=== PATIENT | female | born 1960 | race African-American/Black ===

== ENCOUNTER 2021-04-03 13:04 | Emergency (ER) | payer OTHER, SELFPAY ==
--- NOTE | ~2021-04-03 | XR_ITS ---
XR chest 2V DATE: 04/03/2021 13:47 INDICATION: Chest pain, sudden. Weakness. Recent exposure to family member with Covid TECHNIQUE: PA and lateral views COMPARISON: 01/09/2016 portable AP chest FINDINGS: Heart size is within normal range. No hilar or mediastinal enlargement. No pulmonary infilt rate or consolidation, pleural effusion or pulmonary vascular congestion or pneumothorax. IMPRESSION: No active cardiopulmonary disease Reviewed, dictated and finalized at location B.
--- NOTE | 2021-04-03 13:06 | ECG_ITS ---
Measurements Intervals [place] Rate: 77 P: 36 ND: 191 QRS: 11 QRSD: 76 T: 41 QT: 369 QTc: 418 Interpretive Statements SINUS RHYTHM LOW QRS VOLTAGE IN PRECORDIAL LEADS MINIMAL Q WAVES- INFERIOR LEADS BORDERLINE T WAVE ABNORMALITY- INFERIOR LEADS BORDERLINE ECG Electronically Signed On 04-03-2021 13:27:41 CDT by Drew Mayer D.O.
[2021-04-03 13:19] VITALS: BP 130/77; PULSE 83; RESP 18; TEMP 36.8; O2SAT 98
[2021-04-03 13:22] VITALS: PULSE 83
[2021-04-03 13:33] LABS: Basophils Absolute Auto 0.1 K/mm3 (0.0-0.1); Basophils Percent Auto 0.6 % (0.2-1.2); Eosinophils Absolute Auto 0.1 K/mm3 (0-0.3); Eosinophils Percent Auto 1.4 % (0-4.4); Hematocrit 42.5 % (37.0-47.0); Hemoglobin 13.6 g/dL (12.0-15.0); Immature Granulocyte Absolute 0.02 K/mm3 (0.00-0.031); Immature Granulocyte Percent A 0.3 % (0-0.5); Lymphocytes Absolute Auto 3.46 K/mm3 (0.9-3.2); Lymphocytes Percent Auto 43.3 % (18.3-44.2); Mean Corpuscular Hemoglobin 30.5 pg (26-34); Mean Corpuscular Volume 95.3 fl (80-100); Mean Platelet Volume 9.7 fl (7.4-10.4); Monocytes Absolute Auto 0.8 K/mm3 (0.1-0.6); Monocytes Percent Auto 9.5 % (2.6-8.5); Neutrophils Absolute Auto 3.6 K/mm3 (1.3-6.7); Neutrophils Percent Auto 44.9 % (45.5-73.1); Platelet Count Result 304 k/mm3 (150-375); Red Blood Count 4.46 M/mm3 (4.2-5.4); Red Cell Distribution Width 12.6 % (11.5-14.5)
[2021-04-03 13:51] LABS: INR 0.8; Prothrombin Time 11.5 Seconds (11.1-14.7)
[2021-04-03 13:52] LABS: Partial Thromboplastin Time 29.2 SECONDS (22.3-36.8)
--- NOTE | 2021-04-03 13:52 | ED.CHESTPAIN ---
HPI - Chest Pain General Chief Complaint: Chest Pain Stated Complaint: chest pain Time Seen by Provider: 04/03/21 13:16 Source: patient, RN notes reviewed and old records reviewed Mode of arrival: ambulatory Limitations: no limitations History of Present Illness HPI narrative: This is a 60 year old female with history of anxiety, DM who presents for evaluation of left chest pain. She states she developed chest pain approximately 2 hours ago while she was sitting at her desk. She describes pain as constant dull ache that is nonradiating. Her pain does seem to be slightly worse with breathing. She denies shortness of breath, nausea, vomiting, cough, sore throat or runny nose. She states she was told by her sister that she had covid today. She called employee health today to inquire about instructions about what to do. She told employee [employer] that she did not have any symptoms but she was having chest pain. She was told to come to ER for evaluation of her chest pain. Related Data Allergies Allergy/AdvReac Type Severity Reaction Status Date / Time oxycodone Allergy Unknown Verified 01/09/16 10:11 Penicillins Allergy Unknown Verified 01/09/16 10:11 Review of Systems Review of Systems: All systems reviewed & are unremarkable except as noted in HPI and below Constitutional: Constitutional: Denies chills, Denies fever(s) and Denies weakness ENT: Denies nasal congestion and Denies sore throat Cardiovascular: Cardiovascular: Reports chest pain and Denies radiating jaw, neck or arm pain Respiratory: Respiratory: Denies cough and Denies dyspnea Gastrointestinal: Gastrointestinal: Denies abdominal pain, Denies diarrhea, Denies nausea and Denies vomiting Psychiatric: Psychiatric: Reports anxiety PMFSH Past Medical History Medical History Anxiety Depression Diabetes mellitus Ulcerative colitis Family History Family History (Updated 08/19/16 @ 11:15 by DOCTOR UNKNOWN) Mother Carcinoma of colon Father Malignant neoplasm of prostate Social History Social History Smoking status: Never smoker Alcohol intake: current Exam Const: General: no acute distress and alert Orientation/consciousness: patient oriented x3 Eyes: Pupils: Equal, round and reactive pupils present EOM: EOMs intact bilaterally Chest: Chest palpation & inspection: tenderness (left costochondral) Resp: Effort & Inspection: normal respiratory effort and no retractions Auscultation: clear to auscultation bilaterally Cardio: Rate: regular rate Rhythm: regular rhythm Heart sounds: no murmurs GI: GI Palp: Yes Soft to palpation, No Tenderness to palpation present (GI) and No Guarding due to palpation present (GI) Auscultation: normal bowel sounds Neuro: General: patient oriented x3 and moves all extremities Psych: Mental Status: mental status grossly normal Affect: normal affect Course Reevaluation(s) Reevaluation #1: I Discussed with patient labs are unremarkable. Her pain is reproducible and is atypical. She wants to be tested for COVID Date: 04/03/21 Vital Signs Vital signs: Vital Signs Temperature 98.3 F 04/03/21 13:19 Pulse Rate 83 04/03/21 13:19 Respiratory Rate 18 04/03/21 13:19 Blood Pressure 130/77 04/03/21 13:19 Pulse Oximetry 98 04/03/21 13:19 Temperature 98.3 F 04/03/21 13:19 Pulse Rate 67 04/03/21 16:37 Respiratory Rate 12 04/03/21 16:37 Blood Pressure 118/85 04/03/21 16:37 Pulse Oximetry 99 04/03/21 16:37 MDM - Chest Pain Lab Data Attestation: I reviewed the patient's lab results. Result diagrams: 04/03/21 13:25 04/03/21 13:25 Labs: Lab Results 04/03/21 04/03/21 04/03/21 Range/Units 13:25 13:25 13:25 WBC 8.0 (4.5-10.0) K/mm3 RBC 4.46 (4.2-5.4) M/mm3 Hgb 13.6 (12.0-15.0) g/dL Hct 42.5
[2021-04-03] MEDS: ACETAMINOPHEN 500 MG TABLET 1000 MG PO (13:53)
[2021-04-03 14:00] LABS: Anion Gap 8 mmol/L (8-16); Blood Urea Nitrogen 15 mg/dL (7-17); Calcium 9.4 mg/dL (8.4-10.2); Carbon Dioxide 23 mmol/L (22-30); Chloride 106 mmol/L (98-107); Estimated CRCL calculation 91 ml/min; Estimated Glomerular Filt Rate > 60; Glucose 134 mg/dL (65-110); Potassium 4.2 mmol/L (3.4-5.0); Sodium 137 mmol/L (137-145)
[2021-04-03 14:04] LABS: Troponin I < 0.012 ng/mL (0.000-0.034)
[2021-04-03 14:11] VITALS: BP 119/67; PULSE 80; RESP 20; O2SAT 99
[2021-04-03 14:52] LABS: D Dimer 0.27 ug/mL (<0.48)
[2021-04-03 15:33] VITALS: BP 134/83; PULSE 72; RESP 18; O2SAT 99
[2021-04-03 16:37] VITALS: BP 118/85; PULSE 67; RESP 12; O2SAT 99
[2021-04-03 16:37] LABS: Troponin I < 0.012 ng/mL (0.000-0.034)
[2021-04-05 01:56] LABS: SARS-CoV-2 RNA PCR Negative
== END 2021-04-03 17:04 | disposition home or self-care (01) ==
PROVIDERS: Emergency Provider General Practice; PCP Internal Medicine
DX: R07.89 Other chest pain (principal); Z20.822 Contact with and (suspected) exposure to COVID-19; E11.9 Type 2 diabetes mellitus without complications
CPT/HCPCS: 36415; 71046; 80048; 84484; 85025; 85380; 85610; 85730; 93005; 99284; A9270; C9803; U0003; U0005

== ENCOUNTER 2024-06-27 10:00 | Outpatient (RCR) | payer OTHER, SELFPAY ==
--- NOTE | 2024-05-19 12:37 | OPREHPOC ---
Outpatient Therapy Plan of Care This is a Multidisciplinary Plan of Care that may contain components documented by all disciplines (PT, OT, and ST.) PT Problem 1 PT Problem #1 Knowledge Deficit PT Goal 1 Goal / Goal Update 1. Patient will perform independent HEP Target Visit 3 PT Problem 2 PT Problem #2 Pain PT Goal 1 Goal / Goal Update 1. Pain no higher than 2/10 with all cleaning activities 2. Patient able to get out of bed without pain Target Visit 8 PT Problem 3 PT Problem #3 Impaired Strength PT Goal 1 Goal / Goal Update 1. LE MMT 5/5 and pain free in all planes to allow for household activities Target Visit 8
--- NOTE | 2024-05-19 12:38 | PTOPEVAL1 ---
Assessment and note entered by Eri Uriostegui DPT Evaluation Information Assessment Status Evaluation ICD-10 Condition Codes (PT) Pain in low back M54.50,M54.16,Weakness R53.1 Subjective Information Pt reports she gets nerve pain down through her right back and leg. Some pain on the left but not as bad. Pain to knee on right and mid calf on left . Takes Aleve PRN. Difficulty sleeping at night due to pain and difficulty getting out of bed. Pain increases with doing laundry and navigating steps, turns sideways to go down. Pain with bending over and with standing. Not doing normal cleaning activities due to pain and often needs to take breaks. Some tenderness in her legs as well. Pain started about a year ago but has worsened over time. Highest pain 6/10 and lowest 2/10. Denies n/t. No previous therapy Returns to [place] in July. Patient goal: no pain, feel normal again Reported Pain Level Pain Score 2: Self Report Assessment PT Clinical Summary The patient is presenting to skilled therapy with a history of radiating LBP that has worsened over the last year. She presents with decreased LE and core strength, increased lumbar muscle tone, and signs of neural tension which are contributing to her pain and difficulty with activities like cleaning and getting out of bed. She will highly benefit from therapy to address these impairments in order to reduce pain and return to full function. Plan of Care Interventions Electrical Stimulation,Gait Training,Hot Pack/Cold Pack,Manual Therapy,Neuro Re-education,Patient/ Caregiver Education,Therapeutic Activities, Therapeutic Exercise PT Services Indicated Yes Treatment Frequency and 2 times a week for 8 visits Duration These treatments will address the objective and functional deficits as defined above. The patient will be advanced safely and appropriately in order for the patient to progress towards his/her prior level of function. Additional exercises will be introduced and as well as a comprehensive home exercise program upon discharge, if needed, ?to ensure carryover of functional gains achieved in the clinic. This treatment plan has been reviewed and agreement upon by the patient.
--- NOTE | 2024-05-30 09:42 | PCPTNOTE ---
Patient called to cancel appointment on 05/30/24 due to work conflict.
--- NOTE | 2024-06-01 10:28 | PCPTNOTE ---
Patient called to cancel appointment on 06/01/24 due to work conflict.
--- NOTE | 2024-06-23 08:59 | PCPTNOTE ---
Patient called to cancel appointment 06/23/24 due to illness.
--- NOTE | 2024-06-27 10:43 | OPREHPOC ---
Outpatient Therapy Plan of Care This is a Multidisciplinary Plan of Care that may contain components documented by all disciplines (PT, OT, and ST.) PT Problem 1 PT Problem #1 Knowledge Deficit PT Goal 1 Goal / Goal Update 1. Patient will perform independent HEP Target Visit 3 Progress Met PT Problem 2 PT Problem #2 Pain PT Goal 1 Goal / Goal Update 1. Pain no higher than 2/10 with all cleaning activities 2. Patient able to get out of bed without pain Target Visit 8 Progress Met PT Problem 3 PT Problem #3 Impaired Strength PT Goal 1 Goal / Goal Update 1. LE MMT 5/5 and pain free in all planes to allow for household activities update 06/27 1. pain free in all planes and only hip abduction 4+/5 still Target Visit 8 Progress Partially Met
--- NOTE | 2024-06-27 10:44 | PTOPPROGNS ---
Assessment and note entered by Eri Uriostegui DPT Evaluation Information Assessment Status Progress ICD-10 Condition Codes (PT) Pain in low back M54.50,M54.16,Weakness R53.1 Subjective Information Overall feels improvements with therapy. Highest pain in last week 2/10. Is able to navigate stairs to the basement without an issue. Is able to do normal cleaning activities, takes breaks due to fatigue but not limited by pain. No pain down her legs recently. Assessment PT Clinical Summary The patient has made excellent progress in therapy . She reports highest pain recently only 2/10 and no limitations with ADL's due to back pain. She demonstrates improved LE strength and gait speed and no signs of neural tension. Due to her progress, plan for tentative discharge this visit. The patient has been educated in a thorough HEP and will follow up with PT for more visits if her pain increases over the next month. Plan of Care Interventions PT Services Indicated No Treatment Frequency and - Duration These treatments will address the objective and functional deficits as defined above. The patient will be advanced safely and appropriately in order for the patient to progress towards his/her prior level of function. Additional exercises will be introduced and as well as a comprehensive home exercise program upon discharge, if needed, ?to ensure carryover of functional gains achieved in the clinic. This treatment plan has been reviewed and agreement upon by the patient.
--- NOTE | 2024-07-20 14:33 | PTOPDC ---
Assessment and note entered by Eri Uriostegui DPT Evaluation Information Assessment Status Discharge - Pt Not Present ICD-10 Condition Codes (PT) Pain in low back M54.50,M54.16,Weakness R53.1 Subjective Information - Assessment PT Clinical Summary Patient case to be discharged this date per conversation at last appointment on 06/27/24. Plan of Care PT Services Indicated No
== END 2024-08-10 09:46 | disposition home or self-care (01) ==
LOC: ANHPT 10:00
PROVIDERS: PCP Internal Medicine; Visit Provider Internal Medicine
DX: M54.31 Sciatica, right side (principal)
CPT/HCPCS: 97014; 97110; 97112; 97140; 97161; 97530; G0283

== ENCOUNTER 2025-03-22 09:59 | Emergency (ER) | payer OTHER, SELFPAY ==
--- NOTE | 2025-03-22 10:05 | ED.GENADULT ---
HPI - General Adult General Chief complaint: Ear Stated complaint: Headache/Ear Pain Time Seen by Provider: 03/22/25 10:20 Source: patient, RN notes reviewed and old records reviewed Mode of arrival: ambulatory Limitations: no limitations History of Present Illness HPI narrative: 64-year-old female presents to the [facility] with complaints of a headache on the right side, ear pain for 4 days. Has been taking Tylenol and Aleve. Denies putting anything in her ears. States that she does not swim. Related Data Home Medications ?Medication ?Instructions ?Recorded ?Confirmed ?Last Taken ?Type balsalazide 750 mg capsule mg PO 03/22/25 Unknown History clonazepam 2 mg tablet mg 03/22/25 Unknown History ergocalciferol (vitamin D2) 1,250 03/22/25 Unknown History mcg (50,000 unit) capsule rosuvastatin 10 mg tablet mg 03/22/25 Unknown History venlafaxine 150 mg mg PO 03/22/25 Unknown History capsule,extended release 24 hr Allergies Allergy/AdvReac Type Severity Reaction Status Date / Time Penicillins Allergy Severe Swelling Verified 03/22/25 10:17 of Lip/Tongue/Throat oxycodone Allergy Unknown Unknown Verified 03/22/25 10:17 Review of Systems Review of Systems: All systems reviewed & are unremarkable except as noted in HPI and below Constitutional: Constitutional: Reports no additional constitutional complaints ENT: Reports as per HPI and Reports otalgia Cardiovascular: Cardiovascular: Reports no additional cardiovascular complaints, Denies chest pain and Denies dyspnea Respiratory: Respiratory: Reports no additional respiratory complaints, Denies chest congestion, Denies cough and Denies dyspnea Musculoskeletal: Musculoskeletal: Reports no additional musculoskeletal complaints Integumentary/Breasts: Skin/Breast: Reports system reviewed and no additional complaints, except as docu PMFSH Past Medical History Medical History Depression Anxiety Ulcerative colitis Diabetes mellitus Family History Family History Mother Carcinoma of colon Father Malignant neoplasm of prostate Social History Social History Smoking status: Never smoker Alcohol intake: current Comments At the time of my signature, I reviewed and agree with the nursing past medical, surgical, social, and family history. There is no relevant family history pertinent to the patient complaint. Exam Const: General: cooperative, healthy appearing, comfortable, no acute distress, well developed, alert and well nourished Nutritional Appearance: well nourished Orientation/consciousness: patient oriented x3 Limitations: no limitations HENMT: Head: normal to inspection Ears: hearing grossly normal bilaterally, TM's normal bilaterally, mastoids normal, no periauricular adenopathy and Abnormal EAC present erythema on the right, edema on the right (Lower and anterior aspect) and EAC tenderness; no foreign body and no otic discharge Mouth: Yes Normal oral and palatal mucosa present, Yes lip normal, Yes tongue normal and Yes moist mucous membranes Throat: posterior oropharynx normal, uvula midline and no uvular edema Eyes: General: appearance normal, both eyes and all related structures Alignment and Position: alignment normal Neck: Neck: normal visual inspection, full ROM, no lymphadenopathy and no meningeal signs Chest: Chest palpation & inspection: normal inspection of the chest Resp: Effort & Inspection: normal respiratory effort and able to speak in complete sentences Cardio: Rate: regular rate Skin: General skin exam: normal color and no rashes or lesions noted Neuro: General: patient oriented x3, gait normal, moves all extremities and no meningeal signs Cognition (Neuro): normal cognition Speech: normal speech Gait exam (Neuro): Normal gait present Extrem: General: normal to inspection, full ROM, capillary refill normal and normal gait Psych: Appearance: grossly normal and well kempt Mental Status: mental status grossly normal Speech and movement: Normal speech and movement present and Clear speech present Affect: normal affect Attitude: cooperative Course Course Level of Care: Express Care Visit Vital Signs Vital signs: Vital Signs Temperature 97.8 F 03/22/25 10:13 Pulse Rate 82 03/22/25 10:13 Respiratory Rate 16 03/22/25 10:13 Blood Pressure 125/72 03/22/25 10:13 Pulse Oximetry 98 03/22/25 10:13 Temperature 97.8 F 03/22/25 10:13 Pulse Rate 82 03/22/25 10:13 Respiratory Rate 16 03/22/25 10:13 Blood Pressure 125/72 03/22/25 10:13 Pulse Oximetry 98 03/22/25 10:13 Reviewed Medical Decision Making MDM Narrative Medical decision making narrative: Patient sitting comfortably in exam room. Nontoxic, vitals stable. Patient in no acute distress Erythema noted to the ear canal, TM is within normal limits, no perforation noted. Patient appropriate for outpatient treatment with an ear drop with close follow-up Discharge instructions reviewed with patient, as well as provided in writing per nursing staff. The instructions also include specific and strict return/GO TO THE ER as well as f/u information. All questions have been answered, and the patient deny any further questions with discharge and discharge plan. Some parts of this dictation were generated by voice recognition software and may contain typographical and/or grammatical inaccuracies. Differential Diagnosis Differential Diagnosis: Otitis media, serous otitis, otitis externa Medical Records Medical records reviewed: Yes I reviewed the external patient's medical records. Vital Signs Vital Signs: Vital Signs Temperature 97.8 F 03/22/25 10:13 Pulse Rate 82 03/22/25 10:13 Respiratory Rate 16 03/22/25 10:13 Blood Pressure 125/72 03/22/25 10:13 Pulse Oximetry 98 03/22/25 10:13 Temperature 97.8 F 03/22/25 10:13 Pulse Rate 82 03/22/25 10:13 Respiratory Rate 16 03/22/25 10:13 Blood Pressure 125/72 03/22/25 10:13 Pulse Oximetry 98 03/22/25 10:13 Reviewed Lab Data Lab results reviewed: Yes I reviewed the patient's lab results. Labs: Reviewed Critical Care Time Critical Care Time Critical Care Time: No Discharge Plan Discharge Clinical Impression: Irritation of external ear canal Qualifiers: Laterality: right Qualified Code(s): H61.891 - Other specified disorders of right external ear Headache Qualifiers: Headache type: unspecified Headache chronicity pattern: acute headache Patient Disposition: Home Condition: Stable Instructions: How to Use Ear Drops (ED), Earache (ED) Additional Instructions: Take Tylenol as needed for pain Use the ear drops as prescribed Do not put anything in your ears. Follow-up with primary care provider Patient Language: Arabic Prescriptions: New [id number] 3.5-10,000-1 mg/mL-unit/mL-% drops,suspension 4 drp RIGHT EAR Q6H Qty: 10 0RF No Action venlafaxine 150 mg capsule,extended release 24hr PO clonazepam 2 mg tablet balsalazide 750 mg capsule PO ergocalciferol (vitamin D2) 1,250 mcg (50,000 unit) capsule rosuvastatin 10 mg tablet Follow-up/Referrals: PHYSICIAN,ASSET LIABILITY ANALYST [Primary Care Provider] - Time of Disposition: 10:35
[2025-03-22 10:13] VITALS: BP 125/72; PULSE 82; RESP 16; TEMP 36.6; O2SAT 98
== END 2025-03-22 10:43 | disposition home or self-care (01) ==
PROVIDERS: Emergency Provider Nurse Practitioner
DX: H61.891 Other specified disorders of right external ear (principal); R51.9 Headache, unspecified; E11.9 Type 2 diabetes mellitus without complications; F41.9 Anxiety disorder, unspecified; F32.A Depression, unspecified
CPT/HCPCS: 99213; G0463